=== PATIENT | male | born 1950 | race Hispanic/Latino ===

== ENCOUNTER 2017-04-13 18:03 | Emergency (ER) | payer OTHER ==
[2017-04-13 18:37] LABS: Bilirubin Negative (Negative); Blood, Urine Moderate (Negative); Glucose, Urine (Dipstick) Negative (Negative); Ketone, Urine Negative (Negative); Nitrite Negative (Negative); Protein, Urine (Dipstick) Negative (Neg-Trace); Urobilinogen 0.2 mg/dL (0.2-1.0)
[2017-04-13 18:39] LABS: Bacteria/HPF None Seen HPF (None Seen); Hyaline Casts/LPF 0-3 HYALINE CAST LPF (0-3 Hyaline); Squamous Epithelial None Seen HPF (0-3); WBC/HPF 0-3 HPF (0-3)
[2017-04-13 19:35] LABS: #Basophils 0.1 thou/uL (0.0-0.2); #Eosinphils 0.2 thou/uL (0.0-0.7); #Lymphocytes 2.4 thou/uL (1.20-3.40); #Monocytes 0.5 thou/uL (0.11-0.59); %Basophils 0.9 % (0.0-1.0); %Eosinophils 3.2 % (0.0-10.0); %Lymphocytes 39.8 % (21.0-51.0); %Monocytes 7.5 % (0.0-10.0); Hematocrit 43.9 % (42.0-52.0); Mean Platelet Volume 7.2 fL (7.4-10.4); Red Blood Cell (RBC) Count 4.65 mill/uL (4.70-6.10); White Blood Cell (WBC) Count 6.1 thou/uL (4.8-10.8)
--- NOTE | 2017-04-13 19:40 | CT ---
CT ABDOMEN NONCONTRAST CT PELVIS NONCONTRAST: (urolithiasis protocol) DATE: 04/13/17 TIME: 7:08 p.m. HISTORY: 66-year-old male with hematuria and suprapubic pain after passing a kidney stone. COMPARISON: None. TECHNIQUE: IV injection of iodinated contrast media: none Oral contrast media: none FINDINGS: Other than for urolithiasis, the lack of IV and oral contrast limits the evaluation. Within a right renal upper/mid pole calyx, there is a tight cluster of several tiny renal calculi, ea ch one ranging in size from 2 to 4 mm. In aggregate, this cluster measures approximately 7 x 7 x 2 mm . There is no calculus in any other right renal calyx, or in any of the left renal calyces. There is minimal dilation of bilateral upper pole calyces, but no dilation of the rest of the bilateral renal collecting systems or of the ureters. There is an 8 x 10 x 10 mm calculus at the right posterior aspe ct of the urinary bladder. The prostate gland is enlarged, and a process of the prostate gland protru lincoln into the bladder base. The urinary bladder is not distended despite this. No signs of acute colon ic diverticulitis. Moderate amount of stool throughout the colon, especially in the rectum. Within th e limitations of a noncontrast scan, no gross abnormality identified involving the appendix, left kid rusty, adrenals, pancreas, liver, or spleen. No small bowel dilatation. No pneumoperitoneum or ascites. Subsegmental atelectasis at base of left lower lobe. No pleural effusion. No abdominal aortic aneury sm. IMPRESSION: 1. A moderate sized 10 mm calculus in the right side of the urinary bladder, close to the right UVJ. 2. Despite this, there is no obstructive uropathy, no hydroureteronephrosis. 3. Nephrolithiasis consisting of a cluster of several small calculi within a single right renal calyx. MELI Guidry POS: [facility]
[2017-04-13 20:03] LABS: ALT (SGPT) 13 U/L (8-55); AST (SGOT) 17 U/L (5-34); Alkaline Phosphatase 74 U/L (40-150); Anion Gap 14 mmol/L (10-20); BUN (Urea Nitrogen) 22 mg/dL (8.4-25.7); Bilirubin, Total 0.4 mg/dL (0.2-1.2); Calc. Creatinine Clearance 0 mL/min (70-130); Calcium 9.4 mg/dL (7.8-10.44); Carbon Dioxide 28 mmol/L (23-31); Chloride 100 mmol/L (98-107); Estimated GFR-MDRD 74; Globulin 3.2 g/dL (2.4-3.5); Protein, Total 7.2 g/dL (5.8-8.1)
[2017-04-13 20:08] LABS: Troponin I Less than 0.010 ng/mL (< 0.028)
== END 2017-04-13 21:30 | disposition home or self-care (01) ==
LOC: ERS 18:03
DX: N20.0 Calculus of kidney (principal); N21.0 Calculus in bladder; E78.5 Hyperlipidemia, unspecified; I10 Essential (primary) hypertension; Z79.899 Other long term (current) drug therapy
CPT/HCPCS: 36415; 74176; 80053; 81003; 81015; 82365; 82553; 84484; 85025; 88300; 93005

== ENCOUNTER 2017-05-29 14:25 | Outpatient (CLI) | payer OTHER ==
--- NOTE | 2017-05-29 14:50 | RAD ---
ABDOMEN 1 VIEW: HISTORY: Bladder stone. COMPARISON: CT stone protocol 04/13/17. FINDINGS: The large calculus within the urinary bladder is unchanged and still sits within the right side of th e urinary bladder and measures up to 12 mm. No abnormal calculi projecting over the left renal shado w. Calculus projects over the right renal shadow superior pole. IMPRESSION: Similar appearance to the right nephrolithiasis as well as the urinary bladder calculus. POS: OFF
== END 2017-05-29 14:26 | disposition home or self-care (01) ==
LOC: RAD 14:25
PROVIDERS: ATTEND Urology
DX: N21.0 Calculus in bladder (principal)
CPT/HCPCS: 74018

== ENCOUNTER 2017-05-30 10:40 | Outpatient (CLI) | payer OTHER, SELFPAY ==
[2017-05-30 12:39] LABS: Anion Gap 14 mmol/L (10-20); BUN (Urea Nitrogen) 16 mg/dL (8.4-25.7); Calc. Creatinine Clearance 0 mL/min (70-130); Calcium 9.7 mg/dL (7.8-10.44); Carbon Dioxide 29 mmol/L (23-31); Chloride 103 mmol/L (98-107); Estimated GFR-MDRD 86; Glucose 93 mg/dL (80-115); Potassium 4.5 mmol/L (3.5-5.1); Sodium 141 mmol/L (136-145)
[2017-05-30 12:47] LABS: Hemoglobin 15.5 g/dL (14.0-18.0); Mean Corpuscular HGB CONC 32.9 g/dL (32.0-36.0); Mean Corpuscular Hemoglobin 31.3 pg (27.0-31.0); Mean Platelet Volume 7.5 fL (7.4-10.4); Platelet Count 251 thou/uL (130-400); RBC Distribution Width 11.2 % (11.5-14.5); Red Blood Cell (RBC) Count 4.95 mill/uL (4.70-6.10); White Blood Cell (WBC) Count 6.1 thou/uL (4.8-10.8)
[2017-05-30 16:22] LABS: Bilirubin Negative (Negative); Blood, Urine Negative (Negative); Clarity CLEAR (Clear); Glucose, Urine (Dipstick) Negative (Negative); Leukocyte Small (Negative); Nitrite Negative (Negative); Protein, Urine (Dipstick) Negative (Neg-Trace); Specific Gravity, Urine 1.011 (1.002-1.036); Urobilinogen 0.2 mg/dL (0.2-1.0); pH, Urine 5.5 (5.0-9.0)
[2017-05-30 16:24] LABS: Bacteria/HPF None Seen HPF (None Seen); Hyaline Casts/LPF 0-3 HYALINE CAST LPF (0-3 Hyaline); RBC/HPF 0-3 HPF (0-3); Squamous Epithelial None Seen HPF (0-3); WBC/HPF 0-3 HPF (0-3)
--- NOTE | 2017-07-29 21:50 | EKG ---
Test Reason : Blood Pressure : / mmHG Vent. Rate : 058 BPM Atrial Rate : 058 BPM P-R Int : 172 ms QRS Dur : 098 ms QT Int : 442 ms P-R-T Axes : 038 -06 014 degrees QTc Int : 433 ms Sinus bradycardia Nonspecific ST-T changes Abnormal ECG Confirmed by NICK KRISHNA M.D. ([id number] on 07/29/2017 9:49:43 PM Referred By: PEDRO Confirmed By:NICK KRISHNA M.D.
== END 2017-05-30 10:41 | disposition home or self-care (01) ==
LOC: LABBT 10:40
PROVIDERS: ATTEND Urology
DX: N40.1 Benign prostatic hyperplasia with lower urinary tract symptoms (principal)
CPT/HCPCS: 80048; 81001; 85027; 87086; 93005; 93010

== ENCOUNTER 2017-06-04 06:58 | Day surgery (SDC) | payer SELFPAY ==
[2017-05-30 10:59] VITALS: BMI 30.8
[2017-06-04] MEDS ORDERED: Levofloxacin 500 mg/D5W 100 ml Premix Bag ONE (09:27)
[2017-06-04] MEDS ORDERED: Fentanyl 100 MCG/2 ML VIAL ONE (10:07)
[2017-06-04] MEDS ORDERED: Furosemide 20 MG/2 ML VIAL ONE (10:16)
[2017-06-04] MEDS ORDERED: B & O ONE (10:16)
--- NOTE | 2017-06-04 13:33 | OP ---
DATE OF SERVICE: 06/04/2017 PREOPERATIVE DIAGNOSES: Bladder stone, benign prostatic hypertrophy. POSTOPERATIVE DIAGNOSES: Bladder stone, benign prostatic hypertrophy. PROCEDURE: Cystoscopy litholapaxy with holmium laser. SURGEON: Rosa Isela Crockett M.D. ANESTHESIA: General with laryngeal mask airway. FINDINGS: Adequate fragmentation of one 2 cm bladder stone with rinsing out, a large superficial vei n on that posterior and left wall noted. SPECIMENS: Bladder stone. COMPLICATIONS: None. DRAIN REMAININ-Haitian 2-way. INDICATIONS: The patient is a 66-year-old male who is followed in the office for large bladder stone , small renal stone and BPH, he had actually passed a 1.5 cm stone but still had a 2 cm stone remaini ng so he was set up for cystolitholapaxy with delayed GreenLight given the size of the stone and pros hoyos. PROCEDURE IN DETAIL: The patient was brought to the room by Anesthesia, placed on the table in supin e position. After obtaining general anesthetic, the legs placed in lithotomy position. His perineum was prepped and draped in sterile fashion. Using a 22-Haitian cystoscope, the urethra was traversed and the bladder inspected. The stone was identified. After evaluating a superficial vein that was i mpressive when the bladder was decompressed, but not as impressive with the bladder full and then hol mium laser lithotripsy and fragmented the stone into multiple pieces which were evacuated. Once this was ensured, the scope was removed and 20 Haitian [place] was placed to gravity. The patient tolerated the procedure well and was then awakened and transferred to the PACU in stable condition.
[2017-06-04] MEDS ORDERED: Lidocaine 1% PF 5 ML VIAL ONE (16:00)
[2017-06-04] MEDS ORDERED: Metoclopramide HCl 10 MG/2 ML VIAL ONE (16:00)
[2017-06-04] MEDS ORDERED: Ondansetron HCl/PF 4 MG/2 ML Vial ONE (16:00)
[2017-06-04] MEDS ORDERED: ePHEDrine/0.9% NaCl/PF SYRINGE 50 mg/10 ml ONE (16:00)
[2017-06-04] MEDS ORDERED: Propofol 200 MG/20 ML VIAL ONE (16:00)
[2017-06-04] MEDS ORDERED: diphenhydrAMINE 50 MG/ML VIAL ONE (16:00)
== END 2017-06-04 13:37 | disposition home or self-care (01) ==
LOC: SDC 06:58
PROVIDERS: ATTEND Urology
PROC: 0TCB8ZZ Extirpation of Matter from Bladder, Via Natural or Artificial Opening Endoscopic (ICD-10-PCS; principal; 2017-06-04)
DX: N21.0 Calculus in bladder (principal); N40.1 Benign prostatic hyperplasia with lower urinary tract symptoms; R35.0 Frequency of micturition; R35.1 Nocturia; I10 Essential (primary) hypertension; E78.00 Pure hypercholesterolemia, unspecified; K21.9 Gastro-esophageal reflux disease without esophagitis; Z79.1 Long term (current) use of non-steroidal anti-inflammatories (NSAID); Z79.899 Other long term (current) drug therapy; Z98.890 Other specified postprocedural states
CPT/HCPCS: 82365; 88300; J0131; J1200; J1940; J1956; J2001; J2405; J2704; J2765; J3010

== ENCOUNTER 2017-07-08 11:17 | Outpatient (CLI) | payer OTHER | END 2017-07-08 11:18 | disposition home or self-care (01) | LOC: LABBT 11:17 | PROVIDERS: ATTEND Urology | DX: Z01.818 Encounter for other preprocedural examination (principal); N40.0 Benign prostatic hyperplasia without lower urinary tract symptoms ==

== ENCOUNTER 2017-07-16 10:27 | Day surgery (SDC) | payer OTHER, SELFPAY ==
[2017-07-08 11:44] VITALS: BMI 34.0
[2017-07-16] MEDS ORDERED: Levofloxacin 500 mg/D5W 100 ml Premix Bag ONE (11:07)
[2017-07-16] MEDS ORDERED: Dexamethasone 4 mg/ml Vial ONE (11:35)
[2017-07-16] MEDS ORDERED: Fentanyl 250 MCG/5 ML VIAL ONE (14:22)
[2017-07-16] MEDS ORDERED: B & O ONE (14:29)
[2017-07-16] MEDS ORDERED: Furosemide 20 MG/2 ML VIAL ONE (14:29)
[2017-07-16] MEDS ORDERED: diphenhydrAMINE 50 MG/ML VIAL ONE (14:41)
[2017-07-16] MEDS ORDERED: ePHEDrine/0.9% NaCl/PF SYRINGE 50 mg/10 ml ONE (14:41)
[2017-07-16] MEDS ORDERED: Dexamethasone 20 MG/5 ML VIAL ONE (14:41)
[2017-07-16] MEDS ORDERED: Ondansetron HCl/PF 4 MG/2 ML Vial ONE (14:41)
[2017-07-16] MEDS ORDERED: Lidocaine 1% PF 5 ML VIAL ONE (14:41)
[2017-07-16] MEDS ORDERED: Propofol 200 MG/20 ML VIAL ONE (14:41)
--- NOTE | 2017-07-16 16:30 | OP ---
DATE OF SURGERY: 07/16/2017 PREOPERATIVE DIAGNOSIS: Benign prostatic hypertrophy, status post prior cystolitholapaxy. POSTOPERATIVE DIAGNOSIS: Benign prostatic hypertrophy, status post prior cystolitholapaxy. PROCEDURE PERFORMED: GreenLight laser vaporization of the prostate with enucleation of the middle lo be. SURGEON: Rosa Isela Crockett M.D. ANESTHESIA: General with laryngeal mask airway. FINDINGS: Adequate removal of a large middle lobe with enucleation and vaporization of the rest of t he prostate. A total of 210, 131 joules used. SPECIMENS: Prostate. COMPLICATIONS: None. DRAINS: 20-Chadian 2-way. BLOOD LOSS: Minimal. INDICATIONS: The patient is a 66-year-old male who is followed in the office for hematuria and noted to have bladder stones and BPH and set up for cystolitholapaxy for which he had already undergone an d delayed GreenLight laser vaporization of the prostate. TECHNIQUE: The patient was brought to the room by Anesthesia lying on table in supine position. Aft er receiving general anesthetic, his legs were placed in lithotomy position and the perineum was prep ped and draped in sterile fashion. Using a 22 Chadian cystoscope, it was traversed and bladder inspec neil. The ureteral orifices were identified and preserved throughout the case. A power level of 80 w as used during enucleation of the intravesical component of the middle lobe. A power level of 180 wa s used for the lateral and mid gland. A power level of 80 was again used for the veru and bladder ne ck. There was a large prominent vein that was seen upon entrance lateral and posterior to the middle lobe on the bladder floor. This was then taken down and did not cause significant bleeding. When t he scope was removed, good stream was noted. Scope was put back in. All chips were removed and the scope was put in a final time to ensure both hemostasis and no further chips to be extracted and then when this scope was removed, a 20 Chadian catheter was placed to gravity. The patient was then awake [facility] and transferred to PACU in stable condition.
== END 2017-07-16 18:15 | disposition home or self-care (01) ==
LOC: SDC 10:27
PROVIDERS: ATTEND Urology
PROC: 0V508ZZ Destruction of Prostate, Via Natural or Artificial Opening Endoscopic (ICD-10-PCS; principal; 2017-07-16)
DX: N40.1 Benign prostatic hyperplasia with lower urinary tract symptoms (principal); R35.0 Frequency of micturition; R35.1 Nocturia; I10 Essential (primary) hypertension; K21.9 Gastro-esophageal reflux disease without esophagitis; E78.00 Pure hypercholesterolemia, unspecified; Z79.899 Other long term (current) drug therapy; Z98.890 Other specified postprocedural states
CPT/HCPCS: 88305; J1100; J1200; J1940; J1956; J2001; J2405; J2704; J3010

== ENCOUNTER 2018-02-17 09:45 | Outpatient (CLI) | payer SELFPAY ==
--- NOTE | 2018-02-17 12:05 | RAD ---
ABDOMEN ONE VIEW: History: 67-year-old male with history of abdominal pain. Comparison: 05-29-17 FINDINGS: The previously noted right sided bladder calculus is no longer present. The previously noted right re nal calculus is obscured by extensive fecal material in the colon. No overt ureteral calculus. IMPRESSION: Previously noted right sided bladder calculus is no longer present. Right renal calculus previously s een is not demonstrated on today's study because of overlying fecal material. POS: [facility]
== END 2018-02-17 09:46 | disposition home or self-care (01) ==
LOC: RAD 09:45
PROVIDERS: ATTEND Urology
DX: N20.0 Calculus of kidney (principal); R19.5 Other fecal abnormalities
CPT/HCPCS: 74018